=== PATIENT | female | born 1985 | race African-American/Black ===

== ENCOUNTER 2019-02-24 07:44 | Emergency (ER) | payer SELFPAY ==
[~2019-02-24] VITALS: Ht 177.8 cm; Wt 52.0 kg
[2019-02-24 07:56] VITALS: BP 124/69
== END 2019-02-24 11:30 | disposition home or self-care (01) ==
LOC: ER 07:49
DX: H10.9 Unspecified conjunctivitis (principal); H02.89 Other specified disorders of eyelid
CPT/HCPCS: 99283

== ENCOUNTER 2019-04-24 09:55 | Emergency (ER) | payer MEDICAID ==
[~2019-04-24] VITALS: Ht 157.5 cm; Wt 52.0 kg
[2019-04-24 10:43] LABS: BASOPHILS % 0.7 % (0.0-2.0); EOSINOPHILS % 0.6 % (0.0-5.0); HEMATOCRIT. 39.8 % (36.0-48.0); HEMOGLOBIN. 13.7 g/dL (12.0-16.0); LYMPHOCYTES % 8.5 % (20.0-50.0); MEAN CORPUSCULAR HEMOGLOBIN 30.7 pg (28.0-32.0); MEAN CORPUSCULAR VOLUME 89.4 fL (81.0-99.0); MEAN PLATELET VOLUME 8.4 fl (7.4-10.4); MONOCYTES % 6.2 % (2.0-8.0); PLATELET 353 x1000/uL (130-400); RED BLOOD CELL COUNT 4.45 mill/uL (4.2-5.4); RED CELL DISTRIBUTION WIDTH 13.7 % (11.6-14.6)
[2019-04-24 10:49] LABS: CHLORIDE 108 mEq/L (98-107)
[2019-04-24 10:53] LABS: ETHANOL BLOOD < 10 mg/dL
[2019-04-24 10:55] LABS: CLARITY URINE TURBID (CLEAR); COLOR URINE ORANGE (YELLOW); KETONES URINE NEGATIVE (NEGATIVE); LEUKOCYTE ESTERASE URINE 1+ (NEGATIVE); NITRITE URINE NEGATIVE (NEGATIVE); OCCULT BLOOD URINE 3+ (NEGATIVE); PROTEIN URINE 2+ (NEGATIVE); SPECIFIC GRAVITY URINE 1.022 (1.005-1.030)
[2019-04-24 10:56] LABS: PROTHROMBIN TIME 10.7 sec (9.6-11.0)
[2019-04-24 11:05] LABS: HCG SCREEN NEGATIVE
[2019-04-24 11:13] LABS: *AMPHETAMINES SCREEN URINE NEGATIVE (NEGATIVE); *BARBITURATES SCREEN URINE NEGATIVE (NEGATIVE); *BENZODIAZEPINES SCREEN URINE NEGATIVE (NEGATIVE); *COCAINE SCREEN URINE NEGATIVE (NEGATIVE)
[2019-04-24 11:14] LABS: METHADONE URINE SCREEN NEGATIVE (NEGATIVE); OPIATES URINE SCREEN NEGATIVE (NEGATIVE); PHENCYCLIDINE URINE SCREEN NEGATIVE (NEGATIVE)
[2019-04-24] MEDS ORDERED: MORPHINE SULFATE 4 MG/ML CPJ (NOT FOR IM USE) IV ONE (11:15)
[2019-04-24] MEDS ORDERED: ONDANSETRON HCL 4MG/2ML INJ IV ONE (11:15)
[2019-04-24 11:24] LABS: CANNABINOID URINE SCREEN PRESUMTIVE POSITIVE (NEGATIVE)
[2019-04-24] MEDS ORDERED: IOHEXOL-300 100 ML BOTTLE ONE (13:00)
[2019-04-24] MEDS ORDERED: TAMSULOSIN HCL 0.4MG SR CAPSULE PO ONE (13:30)
[2019-04-24] MEDS ORDERED: CEFTRIAXONE 1 G PREMIX 50 ML IV ONE (13:30)
[2019-04-24] MEDS ORDERED: KETOROLAC 30MG/ML VIAL IV ONE (13:30)
[2019-04-24 14:26] VITALS: BP 112/57
== END 2019-04-24 14:52 | disposition home or self-care (01) ==
LOC: ER 09:55
DX: R10.31 Right lower quadrant pain (principal); N20.0 Calculus of kidney; N13.30 Unspecified hydronephrosis; N39.0 Urinary tract infection, site not specified; R19.7 Diarrhea, unspecified; I10 Essential (primary) hypertension; F12.10 Cannabis abuse, uncomplicated
CPT/HCPCS: 36415; 74177; 80053; 80305; 80320; 81003; 81025; 83690; 84703; 85025; 85610; 96365; 96375; 99284; J0696; J1885; J2270; J2405; Q9967; G0480